=== PATIENT | male | born 1980 | race Caucasian/White ===

== ENCOUNTER 2022-11-26 13:07 | Inpatient (IN) | payer MEDICAID, SELFPAY ==
[2022-11-26 13:13] VITALS: BP 115/68; PULSE 100; RESP 18; TEMP 36.3; O2SAT 96
[2022-11-26 13:17] VITALS: BMI 21.5
[2022-11-26 14:00] VITALS: RESP 18
--- NOTE | 2022-11-26 17:20 | PC.NURSE ---
Patient very short with his answers. Patient not uncooperative, but is unable to stay awake and on task so entire assessment could not be completed. Patient did acknowledge that he was homeless and did currently use drugs, but did not stay awake long enough to tell this RN which drugs he is using. He stated he went to [facility] for outpatient psych treatment in [place], [place] a few years ago. He also said he was hospitalized in a psych facility as a child. Patient does have a history of legal problems as he says he has midemeanors for stealing and letting his dogs run at large. He denied AVH and SI/HI at this time. Will attempt to finish assessment once patient is able to stay awake.
[2022-11-26 20:11] VITALS: RESP 18
--- NOTE | 2022-11-27 10:57 | PC.NURSE ---
Patient better able to give history this morning. He states he arrived at the hospital in [place] because the police were called after he climbed on top of a bucket and had a rope threatening to hang himself. He states he was not actually planning to hang himself and was not going to do it. Patient says he was fighting with his girlfriend and that she started yelling at me and the old man started yelling at me that I was a nigger and wasn't nothing, and I just couldn't take it. He went on to explain that her ex-boyfriend hung himself so he thought he would get her attention by acting as if he were going to do the same. After this RN asked why the girlfriend was yelling at him he stated, well, my p.o. found out I was dirty and I guess he must've called her p.o. and she got in trouble for being dirty too. So she says it's my fault. But I didn't make him do that. Now we both have to go see our p.o.'s twice a week. Patient says he is currently on parole for stealing and that his girlfriend is also on parole for unrelated charges. He endorses using methamphetamines the night he was brought to [facility] in [place], [place]. He also mentioned being worried about his girlfriend because he says there are cannibals where they are staying. Patient stated, I know y'all will think I'm full of shit, but they really are out there where we're at. He says he is homeless and lives wherever he can find a spot to camp at. Patient acknowledges that he needs to get clean and even asked if there were rehabilitation centers around here for him to be admitted to.
--- NOTE | 2022-11-27 11:25 | P.NPUHP_ITS ---
Providers/Chief Complaint Admitting Physician: Bahman Cao MD Chief Complaint: SI HPI NPU History of Present Illness Abe Zurita is a 42 year old male who presented to the emergency department at [facility] in [facility] via EMS after law enforcement had received a call in the home after Abe had been found with a rope tied to a tree and a noose tied to the other end of the rope while standing on a 5 gallon bucket. The police had arrived and via affidavit had stated that Abe was witnessed to be standing on the bucket and was prepared to hang himself with lethal intent. Patient was admitted to the neuropsychiatric unit [facility] on a transfer. The patient was a poor historian and was unable to elaborate much regarding his current stay here. He had acknowledged that his girlfriend of several years had been cheating on him and had been pushing him to hurt himself. The patient on interview and stated that he needed to go home. He had denied having any depression. He had reported that he had not planned this for very long although he had stated having once thought of killing himself by this means in the past but stopped himself from doing it. Patient did acknowledge having used methamphetamine and states that he has been using it for a little while . The urine gathered at [facility] was positive for cannabinoids and amphetamines. He had denied any auditory or visual hallucinations. He had been unable to describe any further symptoms. On evaluation prior to admission the patient had reported that in the past month he had had thoughts of wishing that he would not wake up from his sleep and had had thoughts of killing himself. He had also acknowledged having worked out the details to harm himself. Psychiatric history: None reported Drug and alcohol history: See above Medical history: None Surgical history: None Allergies: No known drug allergies Current medications: None Legal history: None reported Family psychiatric history: None reported Social history: He reports that he smokes cigarettes. He had reported a history of marijuana and methamphetamine use along with occasional alcohol use but none currently. He smokes 1 pack/day. He states that he is not and had been residing with his girlfriend. He reported being unemployed. He did not expand any further regarding his social history. Meds NPU Allergies Allergy/AdvReac Type Severity Reaction Status Date / Time No Known Allergies Allergy Verified 11/26/22 17:09 Mental Status Exam MSE Comments: Patient was lying in his bed disheveled and was difficult to arouse. He was alert and oriented to his name only. He did not know his current location or the date though he was familiar with the year. There was no evidence of any abnormal involuntary motor movements tics or tremors appreciated. There was evidence of severe psychomotor retardation. His speech was mostly slurred and slow with limited productivity noted. He did appear particularly guarded on interview. He had minimized the suicide ideation or homicidal ideation. His mood was described as fine. His affect was mood incongruent and dysphoric. There was some evidence of paranoia and distrust although there were no overt delusions. His attention span was impaired. His recent and remote memory were poor his insight and judgment were impaired. His impulse control is impaired. 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 It is unknown whether the patient has had increased paranoia secondary to the methamphetamine that is led to this event or whether the patient has primary depressive symptoms as well. He will continue to require inpatient hospitalization. 1.? ? Engage? patient in individual ,milieu, and group therapy ?2. ? We will attempt to gather collateral information from previous providers ?3. ? TO-15 minute checks on the unit. ?4.? Recommend sober living treatment at the highest level of care to which the patient is willing to commit. Attestations U Medical Necessity Statement*: Inpatient hospitalization is medically necessary and deemed to be the clinically appropriate intervention at this time. We will monitor initiate medications wh ile making changes as indicated. He will be in the hospital for over 2 midnights. His likely length of stay is 5 to 7 days. Coding Level of Care Code Acute Code for Chg Fwd Diagnoses Depressive disorder F32.A Suicidal ideation R45.851 Methamphetamine abuse F15.10 Stimulant-induced mood disorder with depressive symptoms F15.94
[2022-11-27 14:00] VITALS: BP 106/94; PULSE 72; RESP 16; TEMP 37; O2SAT 97
[2022-11-27 19:51] VITALS: BP 107/61; PULSE 76; RESP 18; TEMP 36.6; O2SAT 97
[2022-11-27] MEDS: trazodone 50 mg Tablet PO (20:41)
[2022-11-27] MEDS: OLANZapine 5 mg ODT PO (20:54)
[2022-11-28 06:27] VITALS: RESP 18
[2022-11-28 14:00] VITALS: BP 126/72; PULSE 95; RESP 18; O2SAT 96
[2022-11-28] MEDS: OLANZapine 5 mg ODT PO (16:28)
--- NOTE | 2022-11-28 16:29 | PC.NURSE ---
Administered 5mg Zyprexa to patient for agitation and anxiety. Patient yelling in his room. Patient had previously been yelling at his gf on the phone. Patient then angry about our lack of shower shoes. Will conitinue to monitor
--- NOTE | 2022-11-28 16:41 | W.PM.NPUPNS ---
Subjective NPU Subjective: Patient is a 42-year-old white male admitted with suicidal ideation with an attempt by hanging himself who had been increasingly paranoid and depressed in the context of likely continued methamphetamine use. The patient showed evidence of an absolute inability to manage his anger with poor impulse control noted. He had repeatedly attempted to contact his and then proceeded to have loud angry outburst where he would be screaming at the top of his lungs and running into his room and some closing the door behind him. He appeared difficult to console. He had required as needed medications to manage this today. He had requested that he be allowed to leave despite there being no clear rational reason to leave here. He had minimized having thoughts of hurting himself today and he continued to report that he had no intention on hanging himself but merely wanted to show his that he may try to hang himself. Mental Status Exam MSE Comments: Thin white male with disheveled appearance poor eye contact appeared preoccupied with his . His mood was described as fine. His speech was loud with increased volume and normal rate. His affect was mood incongruent and irritable. His thought process was superficial and at times nonlinear. His thought content showed no evidence of active homicidal ideation or suicidal ideation. There did appear to be active paranoia and at times he did appear to be responding to internal stimuli. His recent and remote memory appeared poor. His insight is impaired. His judgment is poor. His impulse control appeared feeble.. 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 It is unknown whether the patient has had increased paranoia secondary to the methamphetamine that is led to this event or whether the patient has primary depressive symptoms as well. He will continue to require inpatient hospitalization. 1.? ? Engage? patient in individual ,milieu, and group therapy ?2. ? Patient may likely require forced medications at this time given his level of paranoia and lack of insight. ?3. ? TO-15 minute checks on the unit. ?4.? Recommend sober living treatment at the highest level of care to which the patient is willing to commit. Involuntary Hold Information 96 Hour Hold: 96 Hour Involuntary Admission: Yes 96 Hour Hold Ending Date: 12/02/22 96 Hour Hold Ending Time: 00:01 Attestations NPU Medical Necessity Statement*: Inpatient hospitalization is medically necessary and deemed to be the clinically appropriate intervention at this time. We will monitor initiate medications while making changes as indicated with his likely length of stay is 5 to 7 days. Coding Level of Care Code Acute Code for Chg Fwd Diagnoses Depressive disorder F32.A Suicidal ideation R45.851 Methamphetamine abuse F15.10 Stimulant-induced mood disorder with depressive symptoms F15.94
[2022-11-28] MEDS: haloperidol 5 mg Tablet PO (17:02)
--- NOTE | 2022-11-28 17:02 | PC.NURSE ---
Administered Haldol 5mg PO to patient for extreme agitation. Patient worked up about girlfriend and being in NPU.
[2022-11-28 20:09] VITALS: BP 129/70; PULSE 95; RESP 18; TEMP 36.5; O2SAT 97
[2022-11-29 06:00] VITALS: RESP 16
--- NOTE | 2022-11-29 06:26 | PC.NURSE ---
resp 16 pt sleeping
[2022-11-29] MEDS: OLANZapine 5 mg ODT PO (11:48)
[2022-11-29] MEDS: nicotine 2 mg Gum BUCCAL (11:48)
--- NOTE | 2022-11-29 12:52 | P.NPUDS_ITS ---
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 The police had arrived and via affidavit had stated that Abe was witnessed to be standing on the bucket and was prepared to hang himself with lethal intent.? Patient was admitted to the neuropsychiatric unit [facility] on a transfer.? The patient was a poor historian and was unable to elaborate much regarding his current stay here.? He had acknowledged that his girlfriend of several years had been cheating on him and had been pushing him to hurt himself.? The patient on interview and stated that he needed to go home.? He had denied having any depression.? He had reported that he had not planned this for very long although he had stated having once thought of killing himself by this means in the past but stopped himself from doing it.? Patient did acknowledge having used methamphetamine and states that he has been using it for a little while .? The urine gathered at [facility] was positive for cannabinoids and amphetamines.? He had denied any auditory or visual hallucinations.? He had been unable to describe any further symptoms.? On evaluation prior to admission the patient had reported that in the past month he had had thoughts of wishing that he would not wake up from his sleep and had had thoughts of killing himself.? He had also acknowledged having worked out the details to harm himself. Psychiatric history: None reported Drug and alcohol history: See above Medical history: None Surgical history: None Allergies: No known drug allergies Current medications: None Legal history: None reported Family psychiatric history: None reported Social history: He reports that he smokes cigarettes.? He had reported a history of marijuana and methamphetamine use along with occasional alcohol use but none currently.? He smokes 1 pack/day.? He states that he is not and had been residing with his girlfriend.? He reported being unemployed.? He did not expand any further regarding his social history. Hospital Course Hospital Course The patient struggled with acclimating himself to the milieu individual and group therapies that were provided. He had minimized any suicidal ideation throughout his hospital course stating that he was simply trying to get the attention of his . He had repeatedly asked to leave the facility. He appeared to have significant volatility noted on the milieu with poor frustration tolerance noted with loud negative statements made to staff. He continued to appear somewhat nasty towards all people here on the unit and remained quite demanding. Nonetheless, he was not interested in working with the social work team or the physician regarding any treatment and was able to contract for safety outside of the hospital prior to discharge. Thereby, he was discharged to his home. Involuntary Hold Information 96 Hour Hold: 96 Hour Involuntary Admission: Yes 96 Hour Hold Ending Date: 12/02/22 96 Hour Hold Ending Time: 00:01 Mental Status Exam MSE Comments: Thin white male with disheveled appearance but adequate eye contact. His mood was described as fine. His affect was euthymic. His speech was normal in reg ards to rate rhythm and prosody on discharge. His thought process was linear and logical and goal-directed. His thought content showed no evidence of active homicidal ideation or suicidal ideation. He did not appear to be responding to internal stimuli. There is no evidence of delusional thinking on discharge. His recent and remote memory appeared fair. His insight is limited. His judgment is fair.. His impulse control appeared to be improved. Discharge Data Vitals: Last Vital Signs Temp 97.7 F 11/28/22 20:09 Pulse 95 11/28/22 20:09 Resp 16 11/29/22 06:00 BP 129/70 11/28/22 20:09 Pulse Ox 97 11/28/22 20:09 O2 Del Method Room Air 11/28/22 20:09 Discharge Plan Discharge Patient Disposition: Home Condition: Stable Prescriptions: No Action No Known Home Medications Discharge Orders: Discharge Order (Routine); Ordered 11/29/22 Ordered By: Bahman Cao Referrals: [facility] [Other] - 7-10 days (An appointment would be $85 if insurance is not established when seen.) Discharge Diet: Usual diet Discharge Activity: Resume usual activity Patient Instructions: Opioid Safety Discharge Attestations NPU Time Spent in Discharge Care*: less than 30 min Coding Level of Care Code Acute Chg FW MI note Diagnoses Depressive disorder F32.A Suicidal ideation R45.851 Methamphetamine abuse F15.10 Stimulant-induced mood disorder with depressive symptoms F15.94
[2022-11-29 13:21] VITALS: RESP 16
== END 2022-11-29 14:07 | disposition home or self-care (01) | DRG 897 ==
PROVIDERS: Admitting Provider Psychiatry & Neurology Psychiatry; Visit Provider Psychiatry & Neurology Psychiatry
DX: F15.14 Other stimulant abuse with stimulant-induced mood disorder (principal); R45.851 Suicidal ideations; F12.90 Cannabis use, unspecified, uncomplicated; Z63.0 Problems in relationship with spouse or partner; F17.210 Nicotine dependence, cigarettes, uncomplicated
CPT/HCPCS: 97150; 97165; 99238